=== PATIENT | female | born 1965 | race Caucasian/White ===

== ENCOUNTER → 2021-05-04 | Outpatient (CLI) | payer OTHER ==
[~2021-05-04] MED LIST: AMLODIPINE BESY10 MG PO; ASPIRIN 325MG325 MG PO; ASPIRIN325 MG PO; FISH OIL 1,0001 EAC1 PO; GABAPENTIN100 MG PO; GLUCOPHAGE500 MG PO; IBUPROFEN600 MG PO; LISINOPRIL-HCT1 EAC1 PO; LISINOPRIL20 MG PO; LOPRESSOR 25 MG25 MG PO; MOBIC7.5 MG PO; NEURONTIN 100100 MG PO; NORVASC10 MG PO; PLAVIX75 MG PO; PRAVACHOL20 MG PO
== END ==
LOC: KOH-I 12:56
DX: R60.0 Localized edema (principal); E11.9 Type 2 diabetes mellitus without complications
CPT/HCPCS: 93971